=== PATIENT | female | born 1970 | race Caucasian/White ===

== ENCOUNTER 2016-09-08 14:10 | Emergency (ER) | payer OTHER ==
[~2016-09-08] VITALS: Ht 154.9 cm; Wt 77.1 kg
[~2016-09-08 14:10] MED LIST: ACETAMINOPHEN-O1 TAB PO; ACYCLOVIR400 MG PO; ALLEGRA180 MG PO; ALPRAZOLAM0.25 M2 PO; AMBIEN10 MG PO; AVPAK AZITHROM250 M1 PO; BACTRIM DS 8001 TA1 PO; BENTYL; BENTYL10 MG PO; BENTYL20 MG PO; CARAFATE1 G1 PO; CIPRO500 MG PO; CLARITIN-D 12 H1 TAB PO; CLINDAMYCIN HC300 MG PO; CORTISPORIN SUS10 ML OT; CYCLOBENZAPRINE5 M3 PO; DELSYM30 MG/5 ML PO; DICLOFENAC SOD50 MG PO; FIORICET 325 MG1 TAB PO; FLEXERIL10 MG PO; FLEXERIL5 MG PO; FLONASE 0.05% 121 EA NAS; HYDROCODONE BIT1 T11 PO; KEFLEX500 MG PO; LAMOTRIGINE100 MG PO; MIDRIN (DURADR1 CAP PO; MOTRIN800 MG PO; MS CONTIN60 MG PO; NAPROSYN500 MG PO; NEXIUM40 MG PO; PERCOCET 325 MG1 TA2 PO; PERCOCET 325 MG1 TA5 PO; PERCOCET 325 MG1 TAB PO; PHENERGAN W/DM120 ML PO; PROTONIX40 MG PO; ROBAXIN750 MG PO; SEROQUEL100 MG PO; SOMA PO; TESSALON PERLE100 M1 PO; TIZANIDINE HCL4 M1 PO; TRAMADOL HCL50 MG PO; TRAZODONE150 MG PO; ULTRAM50 MG PO; VICODIN 5/500 505 MG PO; VISTARIL25 M2 PO; VOLTAREN50 M1 PO; XANAX0.25 MG PO; ZITHROMAX Z PA250 MG PO; ZITHROMAX250 MG PO; ZOFRAN ODT4 MG SL; ZYRTEC10 MG PO; Zofran4 MG PO
[2016-09-08] MEDS ORDERED: DEBROX15 ML OT (14:25)
== END 2016-09-08 14:31 | disposition home or self-care (01) ==
LOC: ED 14:10
DX: H61.22 Impacted cerumen, left ear (principal); R03.0 Elevated blood-pressure reading, without diagnosis of hypertension; K21.9 Gastro-esophageal reflux disease without esophagitis; Z98.890 Other specified postprocedural states; Z98.51 Tubal ligation status; Z90.89 Acquired absence of other organs; Z88.0 Allergy status to penicillin

== ENCOUNTER 2017-05-19 21:45 | Emergency (ER) | payer OTHER ==
[~2017-05-19] VITALS: Ht 154.9 cm; Wt 77.1 kg
[~2017-05-19 21:45] MED LIST changes: +DEBROX15 ML OT
[2017-05-19] MEDS ORDERED: OMNICEF300 MG PO (23:27)
[2017-05-19] MEDS ORDERED: MEDROL DOSEPAK4 MG PO (23:31)
== END 2017-05-19 23:43 | disposition home or self-care (01) ==
LOC: ED 21:45
DX: H66.92 Otitis media, unspecified, left ear (principal); J06.9 Acute upper respiratory infection, unspecified; F32.9 Major depressive disorder, single episode, unspecified; F41.9 Anxiety disorder, unspecified; F10.10 Alcohol abuse, uncomplicated; J96.01 Acute respiratory failure with hypoxia; N17.0 Acute kidney failure with tubular necrosis; K21.9 Gastro-esophageal reflux disease without esophagitis; R73.9 Hyperglycemia, unspecified; G47.00 Insomnia, unspecified; Z98.51 Tubal ligation status; Z88.0 Allergy status to penicillin

== ENCOUNTER 2017-06-03 19:28 | Emergency (ER) | payer OTHER ==
[~2017-06-03] VITALS: Ht 154.9 cm; Wt 77.1 kg
[~2017-06-03 19:28] MED LIST changes: +MEDROL DOSEPAK4 MG PO; +OMNICEF300 MG PO
[2017-06-03] MEDS ORDERED: ZITHROMAX250 MG PO (20:42)
[2017-06-03] MEDS ORDERED: ZYRTEC10 MG PO (20:42)
== END 2017-06-03 21:15 | disposition home or self-care (01) ==
LOC: ED 19:28
DX: R51 Headache (principal); H66.92 Otitis media, unspecified, left ear; Z98.890 Other specified postprocedural states; Z98.51 Tubal ligation status; Z90.89 Acquired absence of other organs; Z79.899 Other long term (current) drug therapy; Z88.0 Allergy status to penicillin

== ENCOUNTER 2017-06-14 22:22 | Emergency (ER) | payer OTHER ==
[~2017-06-14] VITALS: Ht 157.4 cm; Wt 77.1 kg
[2017-06-14 22:46] LABS: BASO % 0.2 % (0.0-1.0); EOS % 0.1 % (1.0-4.0); HEMATOCRIT 42.1 % (37.0-47.0); HEMOGLOBIN 13.6 g/dl (12.0-16.0); LYMPH # 2.6 10*3/uL (1.3-4.4); LYMPH % 32.1 % (27.0-41.0); MEAN CELL VOLUME 87.3 fl (81.0-99.0); MEAN CORPUSCULAR HGB 28.2 pg (27.0-31.0); MEAN CORPUSCULAR HGB CONC 32.3 g/dl (33.0-37.0); MEAN PLATELET VOLUME 10.1 fl (9.6-12.3); MONO # 0.5 10*3/uL (0.1-1.0); MONO % 6.1 % (3.0-9.0); NEUT % 61.4 % (47.0-73.0); PLATELET COUNT AUTOMATED 338 10*3/uL (130-400); RED BLOOD COUNT 4.82 10*6/uL (4.10-5.10); RED CELL DISTRI WIDTH 13.4 % (0-14.5); WHITE BLOOD COUNT 8.2 10*3/uL (4.8-10.8)
[2017-06-14 23:03] LABS: ALKALINE PHOSPHATASE 86 U/L (45-117); BUN 14 mg/dl (7-24); CHLORIDE 101 mmol/L (98-107); CREATININE 0.91 mg/dL (0.55-1.02); POTASSIUM 3.8 mmol/L (3.5-5.1); SGOT/AST 12 IU/L (3-35); SGPT/ALT 17 U/L (12-78); SODIUM 136 mmol/L (136-145); TOTAL PROTEIN 7.6 gm/dL (6.4-8.2)
[2017-06-14 23:05] LABS: TROPONIN I < 0.015 ng/ml (<0.045)
[2017-06-14 23:21] LABS: BILIRUBIN NEGATIVE (NEGATIVE); BLOOD NEGATIVE (NEGATIVE); CLARITY CLEAR (CLEAR); COLOR YELLOW (YELLOW); GLUCOSE NEGATIVE (NEGATIVE); KETONE TRACE (NEGATIVE); LEUKO ESTERASE NEGATIVE (NEGATIVE); NITRITE NEGATIVE (NEGATIVE); PH 5.5 (5.0-9.0); SPECIFIC GRAVITY >= 1.030 (1.005-1.030); UROBILINOGEN 0.2 E.U./dl (0.2-1.0)
[2017-06-14 23:30] LABS: URINE AMPHETAMINES > 1000 (1000ng/ml); URINE BARBITURATES < 200 (200ng/ml); URINE BENZODIAZEPINES < 200 (200ng/ml); URINE CANNABINOIDS (THC) < 50 (50ng/ml); URINE COCAINE > 300 (300ng/ml); URINE METHADONE < 300 (300ng/ml); URINE OPIATES > 300 (300ng/ml)
[2017-06-14 23:32] LABS: URINE PHENCYCLIDINE < 25 (25ng/ml)
[2017-06-14 23:35] LABS: BACTERIA 1+; HYALINE CAST 51-100; MUCOUS 1+
== END 2017-06-15 03:38 | disposition home or self-care (01) ==
LOC: ED 22:22
PROVIDERS: Emergency Medicine
DX: T65.891A Toxic effect of other specified substances, accidental (unintentional), initial encounter (principal); K21.9 Gastro-esophageal reflux disease without esophagitis; Z88.0 Allergy status to penicillin; Z98.890 Other specified postprocedural states; Z98.51 Tubal ligation status; Z79.899 Other long term (current) drug therapy; Z87.442 Personal history of urinary calculi; Y92.9 Unspecified place or not applicable

== ENCOUNTER 2017-07-07 15:24 | Emergency (ER) | payer OTHER ==
[~2017-07-07] VITALS: Ht 154.9 cm; Wt 81.6 kg
[2017-07-07 15:46] LABS: BILIRUBIN NEGATIVE (NEGATIVE); BLOOD 3+ (NEGATIVE); CLARITY SL CLOUDY (CLEAR); COLOR YELLOW (YELLOW); GLUCOSE NEGATIVE (NEGATIVE); KETONE TRACE (NEGATIVE); LEUKO ESTERASE 1+ (NEGATIVE); NITRITE NEGATIVE (NEGATIVE); PH 6.5 (5.0-9.0); SPECIFIC GRAVITY 1.025 (1.005-1.030); UROBILINOGEN 0.2 E.U./dl (0.2-1.0)
[2017-07-07 15:51] LABS: RBC TNTC rbc/hpf (0-2)
[2017-07-07 15:52] LABS: BACTERIA 2+; MUCOUS TRACE
[2017-07-07] MEDS ORDERED: MACROBID100 M1 PO ×2 (16:28→17:22)
[2017-07-07] MEDS ORDERED: DIFLUCAN150 MG PO ×2 (16:28→17:22)
== END 2017-07-07 16:40 | disposition home or self-care (01) ==
LOC: ED 15:24
PROVIDERS: Nurse Practitioner Family
DX: N39.0 Urinary tract infection, site not specified (principal); K21.9 Gastro-esophageal reflux disease without esophagitis; Z11.3 Encounter for screening for infections with a predominantly sexual mode of transmission; Z98.890 Other specified postprocedural states; Z98.51 Tubal ligation status; Z88.0 Allergy status to penicillin; Z79.899 Other long term (current) drug therapy

== ENCOUNTER 2017-07-27 19:53 | Emergency (ER) | payer OTHER ==
[~2017-07-27] VITALS: Ht 154.9 cm; Wt 74.8 kg
[~2017-07-27 19:53] MED LIST changes: +DIFLUCAN150 MG PO; +MACROBID100 M1 PO
[2017-07-27] MEDS ORDERED: NAPROSYN500 MG PO (20:05)
== END 2017-07-27 21:26 | disposition home or self-care (01) ==
LOC: ED 19:53
DX: M25.511 Pain in right shoulder (principal); M54.41 Lumbago with sciatica, right side; K21.9 Gastro-esophageal reflux disease without esophagitis; Z98.51 Tubal ligation status; Z98.890 Other specified postprocedural states; Z88.0 Allergy status to penicillin

== ENCOUNTER 2017-11-24 08:21 | Emergency (ER) | payer SELFPAY ==
[~2017-11-24] VITALS: Ht 154.9 cm; Wt 77.2 kg
[2017-11-24] MEDS ORDERED: DEBROX15 ML OT (09:02)
== END 2017-11-24 09:20 | disposition home or self-care (01) ==
LOC: ED 08:21
DX: H61.22 Impacted cerumen, left ear (principal); K21.9 Gastro-esophageal reflux disease without esophagitis; Z88.0 Allergy status to penicillin

== ENCOUNTER 2017-12-25 19:01 | Emergency (ER) | payer SELFPAY ==
[~2017-12-25] VITALS: Wt 74.8 kg
[2017-12-25] MEDS ORDERED: SEPTDS PO (20:42)
[2017-12-25] MEDS ORDERED: NAPROSYN500 MG PO (20:42)
== END 2017-12-25 20:53 | disposition home or self-care (01) ==
LOC: ED 19:01
DX: N75.8 Other diseases of Bartholin's gland (principal); Z88.0 Allergy status to penicillin; Z98.890 Other specified postprocedural states

== ENCOUNTER → 2018-02-14 | Outpatient (CLI) | payer OTHER ==
[~2018-02-14] MED LIST changes: +SEPTDS PO
[2018-02-14 19:23] LABS: BASO % 0.2 % (0.0-1.0); EOS % 0.1 % (1.0-4.0); HEMATOCRIT 42.9 % (37.0-47.0); HEMOGLOBIN 13.8 g/dl (12.0-16.0); LYMPH # 1.9 10*3/uL (1.3-4.4); LYMPH % 19.9 % (27.0-41.0); MEAN CELL VOLUME 89.9 fl (81.0-99.0); MEAN CORPUSCULAR HGB 28.9 pg (27.0-31.0); MEAN CORPUSCULAR HGB CONC 32.2 g/dl (33.0-37.0); MEAN PLATELET VOLUME 9.9 fl (9.6-12.3); MONO # 0.5 10*3/uL (0.1-1.0); MONO % 5.8 % (3.0-9.0); NEUT # 6.9 10*3/uL (2.3-7.9); NEUT % 73.8 % (47.0-73.0); PLATELET COUNT AUTOMATED 364 10*3/uL (130-400); RED BLOOD COUNT 4.77 10*6/uL (4.10-5.10); RED CELL DISTRI WIDTH 13.4 % (0-14.5); WHITE BLOOD COUNT 9.4 10*3/uL (4.8-10.8)
[2018-02-14 19:54] LABS: ALBUMIN 4.1 gm/dl (3.1-4.5); ALKALINE PHOSPHATASE 84 U/L (45-117); BILIRUBIN, DIRECT < 0.1 mg/dL (0.0-0.2); SGOT/AST 12 IU/L (3-35); SGPT/ALT 18 U/L (12-78); TOTAL PROTEIN 7.8 gm/dL (6.4-8.2)
== END | disposition home or self-care (01) ==
LOC: LAB 18:48
PROVIDERS: Podiatrist Foot & Ankle Surgery
DX: B35.1 Tinea unguium (principal)

== ENCOUNTER 2018-04-17 16:22 | Emergency (ER) | payer OTHER ==
[~2018-04-17] VITALS: Ht 162.5 cm; Wt 77.1 kg
--- NOTE | ~2018-04-17 | EKG ---
[place], [place] ELECTROCARDIOGRAM REPORT NAME: TAMEKA CAMILO UNIT #: [id number] ROOM: DOCTOR: DELMI DRAFT REPORT BIRTHDATE: [birth year] [facility] Test Date: 2018-04-17 Test Time: 16:59:48 Pat Name: TAMEKA CAMILO Department: Room: [facility] Gender: F Food Service Kitchen Supervisor: Deann Onofre : 1970 Requested By: NOHEMI MCCLAIN Order Number: [id number] Reading MD: Ryan Simeon MD Measurements Intervals [place] Rate: 65 P: 44 [place]: 127 QRS: -5 QRSD: 97 T: 7 QT: 456 QTc: 475 Interpretive Statements Sinus rhythm LVH with secondary repolarization abnormality No previous ECG available for comparison Electronically Signed On 04-18-2018 17:31:07 PST by Ryan Simeon MD CM:EKGRPT:ELECTROCARDIOGRAM REPORT [id number] NOHEMI EDMOND DRAFT REPORT NOHEMI MCCLAIN DO
[2018-04-17 16:25] VITALS: BP 119/80
--- NOTE | 2018-04-17 16:35 | NUR ---
DR LOPEZ IN TO [facility].
--- NOTE | 2018-04-17 16:36 | NUR ---
LAENNE CALVERT NOTFIED OF PT BEING IN ED. STATES SHE WILL BE IN SOON POSSIBLE.
--- NOTE | 2018-04-17 16:56 | NUR ---
PT OFFERED FOOD AND DRINK STATES NOTHING TO EAT AT THIS TIME BUT DEVAUGHN GIANA PROVIDED. PT CHANGED INTO GOWN FOR TESING. FAMILY REMAINS AT BEDSIDE.
[2018-04-17 17:15] LABS: BASO % 0.3 % (0.0-1.0); EOS # 0.1 10*3/uL (0.0-0.4); EOS % 0.5 % (1.0-4.0); HEMATOCRIT 44.7 % (37.0-47.0); HEMOGLOBIN 14.5 g/dl (12.0-16.0); LYMPH # 2.5 10*3/uL (1.3-4.4); MEAN CELL VOLUME 88.2 fl (81.0-99.0); MEAN CORPUSCULAR HGB 28.6 pg (27.0-31.0); MEAN CORPUSCULAR HGB CONC 32.4 g/dl (33.0-37.0); MEAN PLATELET VOLUME 10.1 fl (9.6-12.3); MONO # 0.8 10*3/uL (0.1-1.0); MONO % 8.1 % (3.0-9.0); NEUT # 6.9 10*3/uL (2.3-7.9); NEUT % 66.9 % (47.0-73.0); PLATELET COUNT AUTOMATED 335 10*3/uL (130-400); RED BLOOD COUNT 5.07 10*6/uL (4.10-5.10); WHITE BLOOD COUNT 10.3 10*3/uL (4.8-10.8)
--- NOTE | 2018-04-17 17:20 | NUR ---
PT MEDICATED PER ORDER.PT STATES STILL UNABLE TO PROVIDE A URINE SAMPLE. PT TEARFUL AT THIS TIME. FAMILY REMAINS AT BEDSIDE.
[2018-04-17 17:21] VITALS: BP 118/78
[2018-04-17 17:24] LABS: ACT PARTIAL THROMBO TIME 23.1 SECONDS (20.8-31.5)
--- NOTE | 2018-04-17 17:32 | NUR ---
PT STATES IS FEELING A LITTLE BIT MORE RELAXED AFTER ATIVAN.
[2018-04-17 17:41] LABS: ALBUMIN 3.9 gm/dl (3.1-4.5); ALKALINE PHOSPHATASE 96 U/L (45-117); B-hCG (QUALITATIVE) NEGATIVE (NEGATIVE); BUN 15 mg/dl (7-24); CHLORIDE 107 mmol/L (98-107); POTASSIUM 3.5 mmol/L (3.5-5.1); SGOT/AST 14 IU/L (3-35); SGPT/ALT 21 U/L (12-78); SODIUM 141 mmol/L (136-145); TOTAL PROTEIN 7.9 gm/dL (6.4-8.2)
[2018-04-17 17:51] LABS: TROPONIN I < 0.015 ng/ml (<0.045)
[2018-04-17 17:52] LABS: ACETAMINOPHEN (TYLENOL) < 5.0 ug/ml (10-30); ETHYL ALCOHOL < 3.0 mg/dl (<3)
--- NOTE | 2018-04-17 17:52 | NUR ---
OFFERED FOOD TO PT AGAIN. PT REFUSED STATES NOT HUNGRY AND DOESNT WANT TO WASTE FOOD.
[2018-04-17 17:54] LABS: PHENYTOIN (DILANTIN) 1.1 ug/ml (10-20); VALPROIC ACID (DEPAKENE) 3.9 ug/ml (50-100)
--- NOTE | 2018-04-17 18:01 | NUR ---
FAMILY TO DESK STATES HAS TO LEAVE SOON TO CARTOGRAPHIC AIDE HER CHILDREN.REASURED HER WE WOULD CHECK ON PT OFTEN AND TEND TO HER NEEDS.
--- NOTE | 2018-04-17 18:06 | NUR ---
LEANNE CALVERT IN TO EVAL PT. PT INSTRUCTED STILL NEED U/A SAMPLE. PT AMBULATED TO BATHROOM WITHOUT DIFFICULTY.
[2018-04-17 18:21] LABS: BILIRUBIN NEGATIVE (NEGATIVE); BLOOD NEGATIVE (NEGATIVE); CLARITY SL CLOUDY (CLEAR); COLOR YELLOW (YELLOW); GLUCOSE NEGATIVE (NEGATIVE); KETONE NEGATIVE (NEGATIVE); LEUKO ESTERASE NEGATIVE (NEGATIVE); NITRITE NEGATIVE (NEGATIVE); PH 5.5 (5.0-9.0); UROBILINOGEN 0.2 E.U./dl (0.2-1.0)
[2018-04-17 18:23] LABS: BACTERIA 1+; WBC 0-2 wbc/hpf (0-5)
[2018-04-17 18:24] VITALS: BP 118/74
[2018-04-17 18:30] LABS: URINE AMPHETAMINES < 1000 (1000ng/ml); URINE BARBITURATES < 200 (200ng/ml); URINE BENZODIAZEPINES > 200 (200ng/ml); URINE CANNABINOIDS (THC) < 50 (50ng/ml); URINE COCAINE > 300 (300ng/ml); URINE METHADONE < 300 (300ng/ml); URINE OPIATES < 300 (300ng/ml)
[2018-04-17 18:31] LABS: URINE PHENCYCLIDINE < 25 (25ng/ml)
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
[2018-04-17 19:48] VITALS: BP 120/72
--- NOTE | 2018-04-17 19:49 | NUR ---
WAS NOTIFIED BY LEANNE CALVERT PT WAS EXCEPTED TO [facility] BY DR KUO.
[2018-04-17 20:30] VITALS: BP 118/74
--- NOTE | 2018-04-17 20:34 | NUR ---
PT RESTING QUIETLY IN BED WATCHING TV, RESP EASY NON-LABORED, NO ACUTE DISTRESS NOTED
[2018-04-17 21:17] VITALS: BP 114/72
--- NOTE | 2018-04-17 21:17 | NUR ---
PT LYIMG IN BED PLAYING ON PHINE NO C/O VOICED SOME FOOD AND DRINK OFFERED BY DECLINES AT THIS TIME.
--- NOTE | 2018-04-17 21:31 | NUR ---
AWAITING CONFORMATION FROM INSURANCE COMPANY FOR APPROVAL FOR PTS TRANSPORT.
--- NOTE | 2018-04-17 22:00 | NUR ---
PT LAYING IN BED. PT CALM AND COOPERATIVE. PT DENIES DISCOMFORT OR DISTRESS.
--- NOTE | 2018-04-17 22:20 | NUR ---
[facility] IN DEPARTMENT TO TRANSFER PT AT THIS TIME.
--- NOTE | 2018-04-17 22:25 | NUR ---
Transfer Out, from the Emergency Department - Stable This patient, TAMEKA CAMILO, 47, 68, [id number], [id number], was examined by the Emergency Department physician, DEANNE Simpson DO and efforts were made to stabilize the patient. The patient's condition is stable. The reason for transfer is need higher level of care . The Emergency physician has made the decision to transfer the patient out. Refer to the ED physician's dictation for the family/back-up physician notified. The attending physician has spoken to the accepting physician at the receiving facility, [facility] . Refer to the ED physician's dictation. The receiving facility has space and qualified personnel to care for the patient, and has agreed to accept the patient. Proper equipment and trained personnel have been arranged. The mode of transport is ground. The agency is [facility] The Emergency physician has spoken to the transport staff re: patient's condition and needs during transport. Copies of the medical record have been forwarded to the receiving facility, including: - Emergency Department record: - name, address, hospital number, age, next of kin - presenting problem - history of injury, past medical history - treatment, medications & route, fluid type & volume - lab and xray findings, films - physical findings - vitals signs -- prehospital, emergency, pre-transfer - preliminary diagnosis - status/condition - emergency medical services record - consent for transfer - authorization for record release - name of any involed physicians -- responsive or not - name and address of referring physician - name of contact physician at receiving facility - name of accepting physician at receiving facility Nursing report has been given to LUIS MIGUEL . Valuables include PERSONAL BELONGINGS. and were given to PATIENT AND ASI. JAG WHITMORE
--- NOTE | 2018-04-18 09:24 | NUR ---
FAMILY MADE AWARE THE PATIENT WAS TRANSFERED TO [facility] IN [facility].
== END 2018-04-17 22:25 | disposition home health service (06) ==
LOC: ED 16:22 → EDHOLD 18:57 → ED 22:25
PROVIDERS: Internal Medicine
DX: T39.1X2A Poisoning by 4-Aminophenol derivatives, intentional self-harm, initial encounter (principal); F31.9 Bipolar disorder, unspecified; R45.851 Suicidal ideations; K21.9 Gastro-esophageal reflux disease without esophagitis; F12.10 Cannabis abuse, uncomplicated; F17.200 Nicotine dependence, unspecified, uncomplicated; Z88.0 Allergy status to penicillin; Y92.89 Other specified places as the place of occurrence of the external cause

== ENCOUNTER → 2018-05-04 | Outpatient (CLI) | payer OTHER ==
[2018-05-04 13:45] LABS: BASO % 0.3 % (0.0-1.0); EOS # 0.1 10*3/uL (0.0-0.4); EOS % 0.8 % (1.0-4.0); HEMATOCRIT 43.6 % (37.0-47.0); HEMOGLOBIN 13.8 g/dl (12.0-16.0); LYMPH # 1.8 10*3/uL (1.3-4.4); LYMPH % 24.1 % (27.0-41.0); MEAN CELL VOLUME 88.4 fl (81.0-99.0); MEAN CORPUSCULAR HGB CONC 31.7 g/dl (33.0-37.0); MEAN PLATELET VOLUME 9.7 fl (9.6-12.3); MONO # 0.4 10*3/uL (0.1-1.0); MONO % 5.9 % (3.0-9.0); NEUT # 5.1 10*3/uL (2.3-7.9); NEUT % 68.6 % (47.0-73.0); PLATELET COUNT AUTOMATED 409 10*3/uL (130-400); RED BLOOD COUNT 4.93 10*6/uL (4.10-5.10); RED CELL DISTRI WIDTH 12.8 % (0-14.5); WHITE BLOOD COUNT 7.5 10*3/uL (4.8-10.8)
[2018-05-04 14:17] LABS: ALBUMIN 3.7 gm/dl (3.1-4.5); ALKALINE PHOSPHATASE 78 U/L (45-117); BUN 13 mg/dl (7-24); CHLORIDE 103 mmol/L (98-107); CHOLESTEROL 211 mg/dL (<200); CREATININE 0.81 mg/dL (0.55-1.02); HDL CHOLESTEROL 66 mg/dl (40-60); LDL CHOLESTEROL 123 mg/dL (9-159); POTASSIUM 3.8 mmol/L (3.5-5.1); SGOT/AST 9 IU/L (3-35); SGPT/ALT 19 U/L (12-78); SODIUM 138 mmol/L (136-145); TOTAL PROTEIN 7.4 gm/dL (6.4-8.2); TRIGLYCERIDES 112 mg/dl (<150); VLDL CHOLESTEROL 22 mg/dL (6-40)
[2018-05-04 14:23] LABS: THYROID STIM HORMONE (HS) 0.289 uIU/ml (0.358-4.75)
[2018-05-05 17:09] LABS: HEPATITIS B SURFACE AG Negative (Negative); HEPATITIS C VIRUS ANTIBODY <0.1 s/co (0.0-0.9)
== END | disposition home or self-care (01) ==
LOC: LAB 13:17
PROVIDERS: Nurse Practitioner Primary Care
DX: E55.9 Vitamin D deficiency, unspecified (principal); G43.909 Migraine, unspecified, not intractable, without status migrainosus; R73.9 Hyperglycemia, unspecified; E66.9 Obesity, unspecified

== ENCOUNTER 2019-02-13 16:35 | Emergency (ER) | payer OTHER ==
[~2019-02-13] VITALS: Wt 79.4 kg
[2019-02-13] MEDS ORDERED: SEPTDS PO (17:38)
== END 2019-02-13 18:00 | disposition home or self-care (01) ==
LOC: ED 16:35
DX: N75.0 Cyst of Bartholin's gland (principal); M25.552 Pain in left hip; M25.551 Pain in right hip; M79.661 Pain in right lower leg; M79.662 Pain in left lower leg; K21.9 Gastro-esophageal reflux disease without esophagitis; G43.909 Migraine, unspecified, not intractable, without status migrainosus; G89.29 Other chronic pain; Z88.0 Allergy status to penicillin

== ENCOUNTER 2019-04-07 18:56 | Emergency (ER) | payer SELFPAY ==
[~2019-04-07] VITALS: Ht 154.9 cm; Wt 74.4 kg
[2019-04-07] MEDS ORDERED: MEDROL DOSEPAK4 MG PO (22:38)
== END 2019-04-07 22:52 | disposition home or self-care (01) ==
LOC: ED 18:56
DX: S80.01XA Contusion of right knee, initial encounter (principal); M25.552 Pain in left hip; Z88.0 Allergy status to penicillin; Z79.899 Other long term (current) drug therapy; W00.0XXA Fall on same level due to ice and snow, initial encounter; Y93.89 Activity, other specified; Y92.89 Other specified places as the place of occurrence of the external cause; Y99.8 Other external cause status

== ENCOUNTER 2019-06-23 20:32 | Emergency (ER) | payer SELFPAY ==
[2019-06-23] MEDS ORDERED: IBU800 MG PO (21:27)
[2019-06-23] MEDS ORDERED: TRAMADOL HCL50 MG PO (21:27)
== END 2019-06-23 21:33 | disposition home or self-care (01) ==
LOC: ED 20:32
DX: G89.29 Other chronic pain (principal); M54.5 Low back pain; M25.561 Pain in right knee; M25.562 Pain in left knee; M25.551 Pain in right hip; M25.552 Pain in left hip; G43.909 Migraine, unspecified, not intractable, without status migrainosus; F17.200 Nicotine dependence, unspecified, uncomplicated; Z98.890 Other specified postprocedural states; Z98.51 Tubal ligation status; Z79.2 Long term (current) use of antibiotics; Z79.899 Other long term (current) drug therapy; Z88.0 Allergy status to penicillin; Z86.14 Personal history of Methicillin resistant Staphylococcus aureus infection

== ENCOUNTER 2019-11-02 11:53 | Emergency (ER) | payer OTHER ==
[~2019-11-02] VITALS: Ht 157.4 cm; Wt 77.1 kg
[~2019-11-02 11:53] MED LIST changes: +IBU800 MG PO
[2019-11-02 12:34] LABS: BILIRUBIN NEGATIVE; BLOOD 3+ (NEGATIVE); CLARITY TURBID (CLEAR); COLOR YELLOW (YELLOW); GLUCOSE NEGATIVE; KETONE NEGATIVE; PH > 9.0 (4.5-8.0)
[2019-11-02 12:35] LABS: LEUKO ESTERASE 3+ (NEGATIVE); NITRITE NEGATIVE (NEGATIVE)
[2019-11-02 12:50] LABS: BASO % 0.2 % (0.0-1.0); EOS % 0.3 % (1.0-4.0); HEMATOCRIT 48.5 % (37.0-47.0); LYMPH % 8.5 % (27.0-41.0); MEAN CELL VOLUME 89.3 fl (81.0-99.0); MEAN CORPUSCULAR HGB 28.4 pg (27.0-31.0); MEAN CORPUSCULAR HGB CONC 31.8 g/dl (33.0-37.0); MEAN PLATELET VOLUME 9.3 fl (9.6-12.3); MONO # 0.1 10*3/uL (0.1-1.0); MONO % 1.2 % (3.0-9.0); NEUT # 10.7 10*3/uL (2.3-7.9); NEUT % 89.5 % (47.0-73.0); PLATELET COUNT AUTOMATED 453 10*3/uL (130-400); RED BLOOD COUNT 5.43 10*6/uL (4.10-5.10); RED CELL DISTRI WIDTH 13.7 % (0-14.5); WHITE BLOOD COUNT 11.9 10*3/uL (4.8-10.8)
[2019-11-02 13:02] LABS: BACTERIA 3+; EPITHELIAL CELLS 21-30; RBC TNTC rbc/hpf (0-2); WBC TNTC wbc/hpf (0-5)
[2019-11-02 13:10] LABS: ALBUMIN 4.1 gm/dl (3.1-4.5); CREATININE 1.17 mg/dL (0.55-1.02); TOTAL PROTEIN 8.4 gm/dL (6.4-8.2)
[2019-11-02 13:15] LABS: URINE AMPHETAMINES < 1000 (1000ng/ml); URINE BARBITURATES < 200 (200ng/ml); URINE BENZODIAZEPINES < 200 (200ng/ml); URINE CANNABINOIDS (THC) > 50 (50ng/ml); URINE COCAINE < 300 (300ng/ml); URINE METHADONE < 300 (300ng/ml); URINE OPIATES < 300 (300ng/ml)
[2019-11-02 13:17] LABS: URINE PHENCYCLIDINE < 25 (25ng/ml)
== END 2019-11-02 18:46 | disposition short-term general hospital (02) ==
LOC: ED 11:53
PROVIDERS: Emergency Medicine
DX: N13.2 Hydronephrosis with renal and ureteral calculous obstruction (principal); R74.0 Nonspecific elevation of levels of transaminase and lactic acid dehydrogenase [LDH]; F41.9 Anxiety disorder, unspecified; F31.9 Bipolar disorder, unspecified; K21.9 Gastro-esophageal reflux disease without esophagitis; Z88.8 Allergy status to other drugs, medicaments and biological substances; Z79.899 Other long term (current) drug therapy

== ENCOUNTER 2020-06-29 19:08 | Emergency (ER) | payer OTHER ==
[~2020-06-29] VITALS: Ht 162.5 cm; Wt 72.6 kg
[2020-06-29 19:43] LABS: BASO % 0.2 % (0.0-1.0); EOS # 0.1 10*3/uL (0.0-0.4); EOS % 0.9 % (1.0-4.0); HEMATOCRIT 39.8 % (37.0-47.0); LYMPH # 2.2 10*3/uL (1.3-4.4); LYMPH % 24.1 % (27.0-41.0); MEAN CELL VOLUME 87.3 fl (81.0-99.0); MEAN CORPUSCULAR HGB 28.1 pg (27.0-31.0); MEAN CORPUSCULAR HGB CONC 32.2 g/dl (33.0-37.0); MONO # 0.5 10*3/uL (0.1-1.0); MONO % 5.4 % (3.0-9.0); NEUT # 6.2 10*3/uL (2.3-7.9); NEUT % 69.3 % (47.0-73.0); PLATELET COUNT AUTOMATED 349 10*3/uL (130-400); RED BLOOD COUNT 4.56 10*6/uL (4.10-5.10); RED CELL DISTRI WIDTH 13.2 % (0-14.5); WHITE BLOOD COUNT 8.9 10*3/uL (4.8-10.8)
[2020-06-29 19:58] LABS: ALBUMIN 3.1 gm/dl (3.1-4.5); ALKALINE PHOSPHATASE 115 U/L (45-117); BUN 9 mg/dl (7-24); CHLORIDE 105 mmol/L (98-107); CREATININE 0.92 mg/dL (0.55-1.02); POTASSIUM 3.4 mmol/L (3.5-5.1); SGOT/AST 6 IU/L (3-35); SGPT/ALT 14 U/L (12-78); SODIUM 140 mmol/L (136-145); TOTAL PROTEIN 6.6 gm/dL (6.4-8.2)
[2020-06-29 20:01] LABS: ACETAMINOPHEN (TYLENOL) < 5.0 ug/ml (10-30); ETHYL ALCOHOL < 3.0 mg/dl (<3)
[2020-06-29 20:22] LABS: BILIRUBIN Negative (Negative); BLOOD Negative (Negative); CLARITY Cloudy (Clear); COLOR Yellow (Yellow); GLUCOSE Negative (Negative); KETONE Negative (Negative); LEUKO ESTERASE 2+ (Negative); NITRITE Positive (Negative); PH 5.5 (4.5-8.0); UROBILINOGEN 0.2 E.U./dl (0.0-1.0)
[2020-06-29 20:29] LABS: BACTERIA 4+; EPITHELIAL CELLS 51-100; MUCOUS TRACE; WBC 51-100 wbc/hpf (0-5)
[2020-06-29 20:30] LABS: URINE AMPHETAMINES > 1000 (1000ng/ml); URINE BARBITURATES < 200 (200ng/ml); URINE BENZODIAZEPINES < 200 (200ng/ml); URINE CANNABINOIDS (THC) < 50 (50ng/ml); URINE COCAINE < 300 (300ng/ml); URINE METHADONE < 300 (300ng/ml); URINE OPIATES < 300 (300ng/ml)
[2020-06-29 20:31] LABS: URINE PHENCYCLIDINE < 25 (25ng/ml)
== END 2020-06-29 22:12 | disposition home or self-care (01) ==
LOC: ED 19:08
PROVIDERS: Student in an Organized Health Care Education/Training Program
DX: T39.1X2A Poisoning by 4-Aminophenol derivatives, intentional self-harm, initial encounter (principal); R53.83 Other fatigue; R45.851 Suicidal ideations; Z88.0 Allergy status to penicillin; Z79.2 Long term (current) use of antibiotics; Z79.899 Other long term (current) drug therapy; Z98.890 Other specified postprocedural states; Z98.51 Tubal ligation status; Y92.89 Other specified places as the place of occurrence of the external cause

== ENCOUNTER 2020-08-12 16:05 | Emergency (ER) | payer OTHER ==
[~2020-08-12] VITALS: Ht 157.4 cm; Wt 81.6 kg
== END 2020-08-12 19:00 | disposition left against medical advice (07) ==
LOC: ED 16:05
DX: Z04.3 Encounter for examination and observation following other accident (principal); Z53.21 Procedure and treatment not carried out due to patient leaving prior to being seen by health care provider; W19.XXXA Unspecified fall, initial encounter; Y93.89 Activity, other specified; Y92.89 Other specified places as the place of occurrence of the external cause; Y99.8 Other external cause status

== ENCOUNTER 2020-09-10 13:38 | Emergency (ER) | payer OTHER ==
[~2020-09-10] VITALS: Ht 154.9 cm; Wt 72.1 kg
[2020-09-10] MEDS ORDERED: BUSPAR5 MG PO (13:52)
[2020-09-10] MEDS ORDERED: Motrin,Rufen800 MG PO (17:17)
[2020-09-10] MEDS ORDERED: PREDNISONE20 M1 PO (17:17)
== END 2020-09-10 17:29 | disposition home or self-care (01) ==
LOC: ED 13:38
DX: M54.41 Lumbago with sciatica, right side (principal); M54.42 Lumbago with sciatica, left side; Z88.0 Allergy status to penicillin; Z79.899 Other long term (current) drug therapy; Z98.890 Other specified postprocedural states; Z98.51 Tubal ligation status

== ENCOUNTER → 2020-10-12 | Outpatient (CLI) | payer OTHER ==
[~2020-10-12] MED LIST changes: +BUSPAR5 MG PO; +Motrin,Rufen800 MG PO; +PREDNISONE20 M1 PO
== END | disposition home or self-care (01) ==
LOC: RAD 12:02
PROVIDERS: ATTEND Chiropractor Orthopedic
DX: M16.0 Bilateral primary osteoarthritis of hip (principal); M48.061 Spinal stenosis, lumbar region without neurogenic claudication; M43.27 Fusion of spine, lumbosacral region

== ENCOUNTER → 2020-11-09 | Outpatient (CLI) | payer OTHER ==
[2020-11-09 11:25] LABS: BASO % 0.3 % (0.0-1.0); EOS # 0.1 10*3/uL (0.0-0.4); HEMATOCRIT 41.3 % (37.0-47.0); LYMPH # 2.1 10*3/uL (1.3-4.4); LYMPH % 30.8 % (27.0-41.0); MEAN CORPUSCULAR HGB 28.2 pg (27.0-31.0); MEAN CORPUSCULAR HGB CONC 31.7 g/dl (33.0-37.0); MEAN PLATELET VOLUME 9.1 fl (9.6-12.3); MONO # 0.5 10*3/uL (0.1-1.0); MONO % 7.2 % (3.0-9.0); NEUT # 4.1 10*3/uL (2.3-7.9); NEUT % 60.4 % (47.0-73.0); PLATELET COUNT AUTOMATED 411 10*3/uL (130-400); RED BLOOD COUNT 4.64 10*6/uL (4.10-5.10); RED CELL DISTRI WIDTH 14.2 % (0-14.5); WHITE BLOOD COUNT 6.9 10*3/uL (4.8-10.8)
[2020-11-10 04:06] LABS: RHEUMATOID ARTHRITIS FACTOR <10.0 IU/mL (0.0-13.9)
== END | disposition home or self-care (01) ==
LOC: LAB 11:03
PROVIDERS: ATTEND Chiropractor Orthopedic
DX: M16.11 Unilateral primary osteoarthritis, right hip (principal); M99.03 Segmental and somatic dysfunction of lumbar region; M43.26 Fusion of spine, lumbar region

== ENCOUNTER 2020-11-13 18:44 | Emergency (ER) | payer OTHER | END 2020-11-13 22:37 | disposition left against medical advice (07) | LOC: ED 18:44 | DX: M54.9 Dorsalgia, unspecified (principal); Z53.21 Procedure and treatment not carried out due to patient leaving prior to being seen by health care provider ==

== ENCOUNTER → 2021-04-25 | Outpatient (CLI) | payer OTHER | END | disposition home or self-care (01) | LOC: US 16:30 | PROVIDERS: ATTEND Pediatrics | DX: M79.605 Pain in left leg (principal) ==

== ENCOUNTER 2022-01-22 13:35 | Emergency (ER) | payer OTHER ==
[~2022-01-22] VITALS: Wt 77.1 kg
== END 2022-01-22 15:55 | disposition home or self-care (01) ==
LOC: ED 13:35
DX: J06.9 Acute upper respiratory infection, unspecified (principal); Z20.822 Contact with and (suspected) exposure to COVID-19; Z88.0 Allergy status to penicillin; K21.9 Gastro-esophageal reflux disease without esophagitis; Z98.51 Tubal ligation status; Z98.890 Other specified postprocedural states

== ENCOUNTER 2022-02-06 12:45 | Emergency (ER) | payer OTHER ==
[~2022-02-06] VITALS: Ht 154.9 cm; Wt 77.1 kg
[2022-02-06] MEDS ORDERED: HYDROXYZINE HCL25 MG PO (16:18)
[2022-02-06] MEDS ORDERED: MEDROL DOSEPAK4 MG PO (16:18)
== END 2022-02-06 16:24 | disposition home or self-care (01) ==
LOC: ED 12:45
DX: S30.860A Insect bite (nonvenomous) of lower back and pelvis, initial encounter (principal); Z88.0 Allergy status to penicillin; Z98.51 Tubal ligation status; Z98.890 Other specified postprocedural states; F10.90 Alcohol use, unspecified, uncomplicated; W57.XXXA Bitten or stung by nonvenomous insect and other nonvenomous arthropods, initial encounter; Y93.89 Activity, other specified; Y92.89 Other specified places as the place of occurrence of the external cause; Y99.8 Other external cause status

== ENCOUNTER 2022-04-03 16:28 | Emergency (ER) | payer OTHER ==
[~2022-04-03] VITALS: Ht 154.9 cm; Wt 77.1 kg
[~2022-04-03 16:28] MED LIST changes: +HYDROXYZINE HCL25 MG PO
[2022-04-03 18:11] LABS: BILIRUBIN Negative (Negative); BLOOD Negative (Negative); CLARITY Clear (Clear); COLOR Yellow (Yellow); GLUCOSE Negative (Negative); KETONE Trace (Negative); LEUKO ESTERASE Negative (Negative); NITRITE Negative (Negative); PH 5.5 (4.5-8.0); SPECIFIC GRAVITY 1.025 (1.001-1.030); UROBILINOGEN 0.2 E.U./dl (0.0-1.0)
[2022-04-03 18:41] LABS: RBC 0-2 rbc/hpf (0-2); WBC 0-2 wbc/hpf (0-5)
[2022-04-03 18:42] LABS: EPITHELIAL CELLS 21-30
[2022-04-03] MEDS ORDERED: ANUSOL-HC25 MG R (18:51)
== END 2022-04-03 19:14 | disposition home or self-care (01) ==
LOC: ED 16:28
PROVIDERS: Physician Assistant
DX: K64.9 Unspecified hemorrhoids (principal); Z88.0 Allergy status to penicillin; Z98.51 Tubal ligation status; Z98.890 Other specified postprocedural states

== ENCOUNTER → 2022-09-19 | Outpatient (CLI) | payer OTHER ==
[~2022-09-19] MED LIST changes: +ANUSOL-HC25 MG R
== END | disposition home or self-care (01) ==
LOC: RAD 16:04
PROVIDERS: ATTEND Specialist
DX: M47.812 Spondylosis without myelopathy or radiculopathy, cervical region (principal); J32.0 Chronic maxillary sinusitis; M43.6 Torticollis

== ENCOUNTER → 2022-09-27 | Outpatient (CLI) | payer OTHER | END | disposition home or self-care (01) | LOC: CT 01:30 | PROVIDERS: ATTEND Specialist | DX: J32.0 Chronic maxillary sinusitis (principal); M43.6 Torticollis ==

== ENCOUNTER 2023-01-01 13:33 | Emergency (ER) | payer SELFPAY ==
[~2023-01-01] VITALS: Wt 77.1 kg
[2023-01-01] MEDS ORDERED: CLINDAMYCIN HC300 MG PO (13:52)
== END 2023-01-01 14:08 | disposition home or self-care (01) ==
LOC: ED 13:33
DX: L73.9 Follicular disorder, unspecified (principal); R21 Rash and other nonspecific skin eruption; G43.909 Migraine, unspecified, not intractable, without status migrainosus; Z88.0 Allergy status to penicillin; Z98.890 Other specified postprocedural states; Z98.51 Tubal ligation status

== ENCOUNTER 2023-01-03 21:23 | Emergency (ER) | payer SELFPAY ==
[~2023-01-03] VITALS: Ht 154.9 cm; Wt 77.1 kg
[2023-01-03] MEDS ORDERED: CEPHALEXIN500 M1 PO (21:50)
== END 2023-01-03 22:09 | disposition home or self-care (01) ==
LOC: ED 21:23
DX: L70.8 Other acne (principal); G43.909 Migraine, unspecified, not intractable, without status migrainosus; Z88.0 Allergy status to penicillin; Z98.51 Tubal ligation status; Z98.890 Other specified postprocedural states

== ENCOUNTER 2023-01-31 18:37 | Emergency (ER) | payer SELFPAY ==
[~2023-01-31] VITALS: Wt 77.1 kg
[~2023-01-31 18:37] MED LIST changes: +CEPHALEXIN500 M1 PO
[2023-01-31] MEDS ORDERED: CYCLOBENZAPRINE5 M3 PO (21:52)
== END 2023-01-31 21:55 | disposition home or self-care (01) ==
LOC: ED 18:37
DX: M54.2 Cervicalgia (principal); G43.909 Migraine, unspecified, not intractable, without status migrainosus; Z88.0 Allergy status to penicillin; Z98.51 Tubal ligation status; Z98.890 Other specified postprocedural states

== ENCOUNTER 2023-03-28 06:02 | Emergency (ER) | payer OTHER ==
[2023-03-28 06:48] LABS: BASO % 0.5 % (0.0-1.0); EOS # 0.2 10*3/uL (0.0-0.4); EOS % 3.3 % (1.0-4.0); LYMPH % 33.2 % (27.0-41.0); MEAN CELL VOLUME 88.1 fl (81.0-99.0); MEAN CORPUSCULAR HGB 28.2 pg (27.0-31.0); MEAN PLATELET VOLUME 9.8 fl (9.6-12.3); MONO # 0.6 10*3/uL (0.1-1.0); MONO % 9.7 % (3.0-9.0); NEUT # 3.2 10*3/uL (2.3-7.9); NEUT % 53.1 % (47.0-73.0); PLATELET COUNT AUTOMATED 275 10*3/uL (130-400); RED BLOOD COUNT 4.54 10*6/uL (4.10-5.10); RED CELL DISTRI WIDTH 13.4 % (0-14.5)
[2023-03-28 07:05] LABS: BILIRUBIN Negative (Negative); BLOOD Negative (Negative); CLARITY Clear (Clear); COLOR Yellow (Yellow); GLUCOSE Negative (Negative); KETONE Negative (Negative); LEUKO ESTERASE Negative (Negative); NITRITE Negative (Negative); PH 7.5 (4.5-8.0); UROBILINOGEN 0.2 E.U./dl (0.0-1.0)
[2023-03-28 07:06] LABS: ALKALINE PHOSPHATASE 121 U/L (46-116); BUN 8 mg/dl (9-23); CHLORIDE 109 mmol/L (98-107); LIPASE 39 U/L (12-53); POTASSIUM 3.6 mmol/L (3.4-5.1); SGPT/ALT 14 U/L (5-49); TOTAL PROTEIN 6.6 gm/dL (6.0-8.0)
[2023-03-28 07:19] LABS: URINE AMPHETAMINES Positive (1000ng/ml); URINE BARBITURATES Negative (200ng/ml); URINE BENZODIAZEPINES Negative (200ng/ml); URINE CANNABINOIDS (THC) Negative (50ng/ml); URINE COCAINE Negative (300ng/ml); URINE METHADONE Negative (300ng/ml); URINE OPIATES Negative (300ng/ml); URINE PHENCYCLIDINE Negative (25ng/ml)
[2023-03-28 07:29] LABS: BACTERIA TRACE; WBC 0-2 wbc/hpf (0-5)
== END 2023-03-28 08:47 | disposition home or self-care (01) ==
LOC: ED 06:02
PROVIDERS: Internal Medicine
DX: R10.9 Unspecified abdominal pain (principal); F15.10 Other stimulant abuse, uncomplicated; G43.909 Migraine, unspecified, not intractable, without status migrainosus; Z88.0 Allergy status to penicillin; Z98.890 Other specified postprocedural states; Z98.51 Tubal ligation status; Z79.899 Other long term (current) drug therapy

== ENCOUNTER 2024-01-31 17:58 | Emergency (ER) | payer OTHER ==
[~2024-01-31] VITALS: Ht 154.9 cm; Wt 77.1 kg
[2024-01-31] MEDS ORDERED: Acetaminophen/Oxycodone 5 MG/325 MG TABLET PO ONE (18:15)
[2024-01-31] MEDS ORDERED: MELOXICAM15 MG PO (18:35)
== END 2024-01-31 18:53 | disposition home or self-care (01) ==
LOC: ED 17:58
DX: S93.601A Unspecified sprain of right foot, initial encounter (principal); G43.909 Migraine, unspecified, not intractable, without status migrainosus; Z88.0 Allergy status to penicillin; Z98.890 Other specified postprocedural states; X50.1XXA Overexertion from prolonged static or awkward postures, initial encounter; Y93.89 Activity, other specified; Y92.89 Other specified places as the place of occurrence of the external cause; Y99.8 Other external cause status

== ENCOUNTER 2024-06-10 19:02 | Emergency (ER) | payer OTHER ==
[~2024-06-10] VITALS: Ht 154.9 cm; Wt 79.4 kg
[~2024-06-10 19:02] MED LIST changes: +MELOXICAM15 MG PO
[2024-06-10] MEDS ORDERED: DEBROX15 ML OT (20:10)
[2024-06-10] MEDS ORDERED: PREDNISONE20 M1 PO (20:10)
[2024-06-10] MEDS ORDERED: Dexamethasone Sodium Phospha 10 MG/1 ML VIAL IM ONE (20:15)
[2024-06-10] MEDS ORDERED: Ketorolac Tromethamine 30 MG/ML VIAL IM ONE (20:15)
== END 2024-06-10 20:43 | disposition home or self-care (01) ==
LOC: ED 19:02
DX: H61.22 Impacted cerumen, left ear (principal); L20.9 Atopic dermatitis, unspecified; G43.909 Migraine, unspecified, not intractable, without status migrainosus; Z79.899 Other long term (current) drug therapy; Z88.0 Allergy status to penicillin; Z98.51 Tubal ligation status; Z98.890 Other specified postprocedural states

== ENCOUNTER 2024-08-12 22:14 | Emergency (ER) | payer OTHER ==
[~2024-08-12] VITALS: Ht 154.9 cm; Wt 85.7 kg
[2024-08-13 00:39] LABS: BASO % 0.3 % (0.0-1.0); EOS # 0.2 10*3/uL (0.0-0.4); EOS % 2.7 % (1.0-4.0); HEMATOCRIT 41.3 % (37.0-47.0); MEAN CELL VOLUME 88.6 fl (81.0-99.0); MEAN CORPUSCULAR HGB 27.9 pg (27.0-31.0); MEAN CORPUSCULAR HGB CONC 31.5 g/dl (33.0-37.0); MEAN PLATELET VOLUME 9.4 fl (9.6-12.3); MONO # 0.7 10*3/uL (0.1-1.0); MONO % 9.9 % (3.0-9.0); NEUT # 3.6 10*3/uL (2.3-7.9); NEUT % 54.9 % (47.0-73.0); PLATELET COUNT AUTOMATED 308 10*3/uL (130-400); RED BLOOD COUNT 4.66 10*6/uL (4.10-5.10); RED CELL DISTRI WIDTH 13.5 % (0-14.5); WHITE BLOOD COUNT 6.6 10*3/uL (4.8-10.8)
[2024-08-13 01:03] LABS: BUN 9 mg/dl (9-23); CHLORIDE 105 mmol/L (98-107); POTASSIUM 3.8 mmol/L (3.4-5.1)
== END 2024-08-13 03:00 | disposition home or self-care (01) ==
LOC: ED 22:14
PROVIDERS: Emergency Medicine
DX: M25.572 Pain in left ankle and joints of left foot (principal); M25.571 Pain in right ankle and joints of right foot; M79.661 Pain in right lower leg; M79.662 Pain in left lower leg; R20.2 Paresthesia of skin; R20.8 Other disturbances of skin sensation; Z88.0 Allergy status to penicillin; Z79.899 Other long term (current) drug therapy; Z98.890 Other specified postprocedural states

== ENCOUNTER → 2024-08-26 | Outpatient (CLI) | payer OTHER | END | disposition home or self-care (01) | LOC: RESCLI 02:50 | PROVIDERS: ATTEND Student in an Organized Health Care Education/Training Program | DX: M79.604 Pain in right leg (principal); R06.02 Shortness of breath; Z01.89 Encounter for other specified special examinations; Z68.33 Body mass index [BMI] 33.0-33.9, adult; Z79.899 Other long term (current) drug therapy; Z98.890 Other specified postprocedural states; Z88.0 Allergy status to penicillin ==

== ENCOUNTER → 2024-10-02 | Outpatient (CLI) | payer OTHER ==
[2024-10-02 16:32] LABS: BUN 13 mg/dl (9-23); LDL CHOLESTEROL 96 mg/dL (9-159); SGPT/ALT 11 U/L (5-49)
== END | disposition home or self-care (01) ==
LOC: LAB 15:46
PROVIDERS: ATTEND Family Medicine
DX: Z01.89 Encounter for other specified special examinations (principal); Z68.33 Body mass index [BMI] 33.0-33.9, adult

== ENCOUNTER 2025-01-05 19:15 | Emergency (ER) | payer SELFPAY ==
[~2025-01-05] VITALS: Ht 154.9 cm; Wt 81.6 kg
[2025-01-05] MEDS ORDERED: MEDROL DOSEPAK4 MG PO (20:51)
== END 2025-01-05 21:15 | disposition home or self-care (01) ==
LOC: ED 19:15
DX: J06.9 Acute upper respiratory infection, unspecified (principal); Z88.0 Allergy status to penicillin; Z79.899 Other long term (current) drug therapy; Z98.890 Other specified postprocedural states; Z20.822 Contact with and (suspected) exposure to COVID-19

== ENCOUNTER 2025-02-10 22:50 | Emergency (ER) | payer SELFPAY ==
[2025-02-11] MEDS ORDERED: MEDROL DOSEPAK4 MG PO (00:50)
== END 2025-02-11 01:08 | disposition home or self-care (01) ==
LOC: ED 22:50
DX: B34.9 Viral infection, unspecified (principal); G43.909 Migraine, unspecified, not intractable, without status migrainosus; Z20.822 Contact with and (suspected) exposure to COVID-19; Z98.890 Other specified postprocedural states; Z88.0 Allergy status to penicillin